=== PATIENT | male | born 1960 | race Caucasian/White ===

== ENCOUNTER 2021-06-04 09:00 | Day surgery (SDC) | payer BC ==
[2021-06-04] MEDS ORDERED: Decadron 4 MG INJ IV ONE (09:01)
[2021-06-04] MEDS ORDERED: Xylocaine 1% Vial 30 ML PF IJ ONE (09:01)
[2021-06-04] MEDS ORDERED: Sodium Chloride 0.9(Preservative Free) 10 ML IJ ONE (09:01)
[2021-06-04] MEDS ORDERED: Depo-Medrol 40 MG/ML IM ONE (09:01)
[2021-06-04] MEDS ORDERED: DIPRIVAN 200 MG/20 ML IV ONE (11:14)
[2021-06-04] MEDS ORDERED: Lactated Ringers 1,000 ML IV ONE (11:24)
--- NOTE | 2021-06-04 12:41 | XRAY ---
Indication: Left piriformis injection Intraoperative fluoroscopy provided for 29 seconds. Single digital spot image submitted for interpretation demonstrates posterior needle tip projecting over the expected left piriformis muscle. Small amount of contrast injected for needle tip placement. Correlate with intraoperative findings/report.
--- NOTE | 2021-06-04 12:41 | XRAY ---
Indication: Left L4-S1 transforaminal CROW. Intraoperative fluoroscopy provided for 25 seconds. 4 digital spot image submitted for interpretation demonstrates posterior needle tips projecting over the expected left L4 and L5 nerve roots. Small amount of contrast injected for needle tip placement. Correlate with intraoperative findings/report.
--- NOTE | 2021-06-05 15:17 | XRAY ---
25 seconds fluoroscopy time in surgery for left L4-S1 transforaminal CROW.
--- NOTE | 2021-06-05 15:17 | XRAY ---
29 seconds fluoroscopy time in surgery for injection of the left piriformis muscle.
== END 2021-06-04 11:40 | disposition home or self-care (01) ==
LOC: SDC-PAIN 09:00
PROVIDERS: ATTEND Psychiatry & Neurology Pain Medicine
DX: M54.16 Radiculopathy, lumbar region (principal); M79.18 Myalgia, other site; Z79.899 Other long term (current) drug therapy
CPT/HCPCS: 20552; 64483; 64484; 72020; 72100; 77002; 77003; J1030; J1100; J2001; J2704; Q9966

== ENCOUNTER 2021-07-23 15:13 | Day surgery (SDC) | payer BC ==
[2021-07-23] MEDS ORDERED: XYLOCAINE-MPF 1% 5ML SDV IJ ONE (15:14)
[2021-07-23] MEDS ORDERED: Marcaine Mpf 0.5% Vial 30 Ml IJ ONE (15:14)
[2021-07-23] MEDS ORDERED: Depo-Medrol 40 MG/ML IM ONE (15:14)
--- NOTE | 2021-07-23 21:31 | XRAY ---
Indication: Right SI joint injection Intraoperative fluoroscopy provided for 9 seconds. 2 digital spot image submitted for interpretation demonstrates posterior needle tip projecting over the inferior right SI joint. Correlate with intraoperative findings/report.
--- NOTE | 2021-07-24 09:14 | XRAY ---
9 seconds of fluoroscopy was used in surgery for a right SI joint injection.
== END 2021-07-23 18:48 | disposition home or self-care (01) ==
LOC: SDC-PAIN 15:13
PROVIDERS: ATTEND Psychiatry & Neurology Pain Medicine
DX: M46.1 Sacroiliitis, not elsewhere classified (principal); Z79.899 Other long term (current) drug therapy
CPT/HCPCS: 27096; 72020; 77002; J1030; G0260

== ENCOUNTER 2021-08-27 11:08 | Day surgery (SDC) | payer BC ==
[2021-08-27] MEDS ORDERED: XYLOCAINE-MPF 1% 5ML SDV IJ ONE (11:09)
[2021-08-27] MEDS ORDERED: DIPRIVAN 200 MG/20 ML IV ONE (14:07)
[2021-08-27] MEDS ORDERED: Lactated Ringers 1,000 ML IV ONE (15:07)
--- NOTE | 2021-08-27 16:25 | XRAY ---
Indication: Bilateral L4-S1 MBB. Intraoperative fluoroscopy provided for 12 seconds. Single digital spot image submitted for interpretation demonstrates posterior needle tips projecting over the expected left and right L4-S1 nerve roots. Correlate with intraoperative findings/report.
--- NOTE | 2021-08-27 16:48 | XRAY ---
12 seconds of fluoroscopy was used in surgery for a bilateral L4-S1 MBB.
== END 2021-08-27 14:35 | disposition home or self-care (01) ==
LOC: SDC-PAIN 11:08
PROVIDERS: ATTEND Psychiatry & Neurology Pain Medicine
DX: M47.816 Spondylosis without myelopathy or radiculopathy, lumbar region (principal); Z79.899 Other long term (current) drug therapy
CPT/HCPCS: 64493; 64494; 72020; 77002; J2704

== ENCOUNTER 2021-09-24 12:17 | Day surgery (SDC) | payer BC ==
[~2021-09-24 12:17] MED LIST: DIPRIVAN 200 MG/20 ML IV ONE
[2021-09-24] MEDS ORDERED: Marcaine Mpf 0.5% Vial 30 Ml IJ ONE (12:18)
[2021-09-24] MEDS ORDERED: Lactated Ringers 1,000 ML IV ONE (13:44)
--- NOTE | 2021-09-24 14:10 | XRAY ---
Indication: Bilateral L4-S1 MBB. Intraoperative fluoroscopy provided for 13 seconds. Single digital spot image submitted for interpretation demonstrates posterior needle tips projecting over the expected left and right L4-S1 nerve roots. Correlate with intraoperative findings/report.
--- NOTE | 2021-09-25 09:20 | XRAY ---
13 seconds fluoroscopy time in surgery for bilateral L4-S1 MBB.
== END 2021-09-24 12:22 | disposition home or self-care (01) ==
LOC: SDC-PAIN 12:17
PROVIDERS: ATTEND Psychiatry & Neurology Pain Medicine
DX: M47.816 Spondylosis without myelopathy or radiculopathy, lumbar region (principal); Z79.899 Other long term (current) drug therapy
CPT/HCPCS: 64493; 64494; 72020; 77002; J2704

== ENCOUNTER 2021-10-29 14:13 | Day surgery (SDC) | payer BC ==
[2021-10-29] MEDS ORDERED: LIDOCAINE HCL 1% 50 MG/5 ML VL PF IJ ONE (14:14)
[2021-10-29] MEDS ORDERED: Marcaine Mpf 0.5% Vial 30 Ml IJ ONE (14:14)
[2021-10-29] MEDS ORDERED: Depo-Medrol 40 MG/ML IM ONE (14:14)
[2021-10-29] MEDS ORDERED: Lactated Ringers 1,000 ML IV ONE (16:04)
[2021-10-29] MEDS ORDERED: DIPRIVAN 200 MG/20 ML IV ONE ×2 (16:37→16:43)
--- NOTE | 2021-10-29 17:13 | XRAY ---
Indication: Left L4-S1 RFA. Intraoperative fluoroscopy provided for 26 seconds. 3 digital spot image submitted for interpretation demonstrates posterior needle tips projecting over the expected left L4-S1 nerve roots. Correlate with intraoperative findings/report.
--- NOTE | 2021-10-29 17:21 | XRAY ---
26 seconds of fluoroscopy was used in surgery for a left L4-S1 RFA.
== END 2021-10-29 17:10 | disposition home or self-care (01) ==
LOC: SDC-PAIN 14:13
PROVIDERS: ATTEND Psychiatry & Neurology Pain Medicine
DX: M47.816 Spondylosis without myelopathy or radiculopathy, lumbar region (principal); Z79.899 Other long term (current) drug therapy
CPT/HCPCS: 64635; 64636; 72100; 77002; J1030; J2001; J2704

== ENCOUNTER 2021-11-05 11:29 | Day surgery (SDC) | payer BC ==
[2021-11-05] MEDS ORDERED: XYLOCAINE-MPF 1% 5ML SDV IJ ONE (11:30)
[2021-11-05] MEDS ORDERED: Depo-Medrol 40 MG/ML IM ONE (11:30)
[2021-11-05] MEDS ORDERED: Marcaine Mpf 0.5% Vial 30 Ml IJ ONE (11:30)
[2021-11-05] MEDS ORDERED: Lactated Ringers 1,000 ML IV ONE (13:40)
[2021-11-05] MEDS ORDERED: DIPRIVAN 200 MG/20 ML IV ONE (13:43)
--- NOTE | 2021-11-05 19:16 | XRAY ---
Indication: Right L4-S1 RFA. Intraoperative fluoroscopy provided for 28 seconds. 5 digital spot image submitted for interpretation demonstrates posterior needle tips projecting over the expected right L4-S1 nerve roots. Correlate with intraoperative findings/report.
--- NOTE | 2021-11-05 19:35 | XRAY ---
28 seconds of fluoroscopy was used for surgery for a right L4-S1 RFA.
== END 2021-11-05 14:15 | disposition home or self-care (01) ==
LOC: SDC-PAIN 11:29
PROVIDERS: ATTEND Psychiatry & Neurology Pain Medicine
DX: M47.816 Spondylosis without myelopathy or radiculopathy, lumbar region (principal); Z79.899 Other long term (current) drug therapy
CPT/HCPCS: 64635; 64636; 72100; 77002; J1030; J2704

== ENCOUNTER 2022-05-20 15:28 | Day surgery (SDC) | payer BC, MEDICARE ==
[2022-05-20] MEDS ORDERED: LIDOCAINE HCL 1% 50 MG/5 ML VL PF IJ ONE (15:29)
[2022-05-20] MEDS ORDERED: BUPIVACAINE 0.5% VIAL IJ ONE (15:29)
[2022-05-20] MEDS ORDERED: Depo-Medrol 40 MG/ML IM ONE (15:29)
--- NOTE | 2022-05-20 19:37 | XRAY ---
Indication: Bilateral SI joint injection. Intraoperative fluoroscopy provided for 22 seconds. 4 digital spot images submitted for interpretation demonstrates posterior needle tip projecting over the left and right SI joint. Correlate with intraoperative findings/report.
--- NOTE | 2022-05-21 08:42 | XRAY ---
22 seconds of fluoroscopy was used in surgery for a bilateral sacroiliac joint injection.
== END 2022-05-20 17:40 | disposition home or self-care (01) ==
LOC: SDC-PAIN 15:28
PROVIDERS: ATTEND Psychiatry & Neurology Pain Medicine
DX: M46.1 Sacroiliitis, not elsewhere classified (principal); Z79.899 Other long term (current) drug therapy
CPT/HCPCS: 27096; 72202; 77002; J1030; J2001; G0260

== ENCOUNTER 2022-07-01 11:59 | Day surgery (SDC) | payer BC, MEDICARE ==
[2022-07-01] MEDS ORDERED: Depo-Medrol 40 MG/ML IM ONE (12:00)
[2022-07-01] MEDS ORDERED: Sodium Chloride 0.9(Preservative Free) 10 ML IJ ONE (12:00)
[2022-07-01] MEDS ORDERED: DIPRIVAN 200 MG/20 ML IV ONE (13:30)
[2022-07-01] MEDS ORDERED: MORPHINE SULFATE 2 MG INJ ONE (13:50)
[2022-07-01] MEDS ORDERED: Hydromorphone 1 mg/ml Injection ONE (14:00)
--- NOTE | 2022-07-01 14:45 | XRAY ---
Indication: Right L3-L5 transforaminal CROW. Intraoperative fluoroscopy provided for 25 seconds. 3 digital spot images submitted for interpretation demonstrates posterior needle tips projecting over the expected right L3 and L4 nerve roots. Small amount of contrast injected for needle tip placement. Correlate with intraoperative findings/report.
--- NOTE | 2022-07-01 14:49 | XRAY ---
25 seconds of fluoroscopy was used in surgery for a right L3-L5 transforaminal CROW.
[2022-07-01] MEDS ORDERED: Lactated Ringers 1,000 ML IV ONE (15:23)
== END 2022-07-01 14:15 | disposition home or self-care (01) ==
LOC: SDC-PAIN 11:59
PROVIDERS: ATTEND Psychiatry & Neurology Pain Medicine
DX: M54.16 Radiculopathy, lumbar region (principal); Z79.899 Other long term (current) drug therapy
CPT/HCPCS: 64483; 64484; 72100; 77002; J1030; J1170; J2270; J2704; Q9966

== ENCOUNTER 2022-08-26 16:13 | Day surgery (SDC) | payer BC, MEDICARE ==
[2022-08-26] MEDS ORDERED: Depo-Medrol 40 MG/ML IM ONE (16:14)
[2022-08-26] MEDS ORDERED: LIDOCAINE HCL 1% 50 MG/5 ML VL PF IJ ONE (16:14)
[2022-08-26] MEDS ORDERED: Sodium Chloride 0.9(Preservative Free) 10 ML IJ ONE (16:14)
[2022-08-26] MEDS ORDERED: Lactated Ringers 1,000 ML IV ONE (17:11)
--- NOTE | 2022-08-26 20:13 | XRAY ---
Indication: Lumbar CROW. Intraoperative fluoroscopy provided for 17 seconds. 2 digital spot images submitted for interpretation demonstrates posterior needle tip projecting posterior to lumbosacral junction interspace. Small amount of contrast injected for needle tip placement. Correlate with intraoperative findings/report.
--- NOTE | 2022-08-27 12:16 | XRAY ---
17 seconds of fluoroscopy was used in surgery for a lumbar CROW.
== END 2022-08-26 17:52 | disposition home or self-care (01) ==
LOC: SDC-PAIN 16:13
PROVIDERS: ATTEND Psychiatry & Neurology Pain Medicine
DX: M54.16 Radiculopathy, lumbar region (principal); Z79.899 Other long term (current) drug therapy
CPT/HCPCS: 62323; 72100; 77003; J1030; J2001; Q9966

== ENCOUNTER 2022-09-30 14:21 | Day surgery (SDC) | payer BC, MEDICARE ==
[2022-09-30] MEDS ORDERED: Decadron 4 MG INJ IV ONE (14:22)
[2022-09-30] MEDS ORDERED: LIDOCAINE HCL 1% 50 MG/5 ML VL PF IJ ONE (14:22)
[2022-09-30] MEDS ORDERED: DIPRIVAN 200 MG/20 ML IV ONE (15:26)
[2022-09-30] MEDS ORDERED: Lactated Ringers 1,000 ML IV ONE (15:46)
--- NOTE | 2022-09-30 16:57 | XRAY ---
Indication: Bilateral piriformis injection. Intraoperative fluoroscopy provided for 27 seconds. 3 digital spot image submitted for interpretation demonstrates posterior needle tip projecting over the expected left and right piriformis with small amount of contrast injected for needle tip placement. Correlate with intraoperative findings/report.
--- NOTE | 2022-09-30 17:34 | XRAY ---
27 seconds of fluoroscopy was used in surgery for a bilateral piriformis injection.
== END 2022-09-30 15:50 | disposition home or self-care (01) ==
LOC: SDC-PAIN 14:21
PROVIDERS: ATTEND Psychiatry & Neurology Pain Medicine
DX: M79.18 Myalgia, other site (principal); Z79.899 Other long term (current) drug therapy
CPT/HCPCS: 20552; 72170; 77002; J1100; J2001; J2704; Q9966